=== PATIENT | female | born 1965 | race Caucasian/White ===

== ENCOUNTER → 2016-04-19 | Day surgery (SDC) | payer OTHER ==
[~2016-04-19] MED LIST: LEVOTHYROXINE75 MCG PO; ONE DAILY FOR1 EAC2 PO; POTASSIUM99 M1 PO; PRILOSEC OTC20 MG PO; VITAMIN D35000 UNI1 PO; ZESTRIL10 MG PO
== END | disposition home or self-care (01) ==
LOC: OR 07:30
PROVIDERS: Surgery
PROC: 0DBM8ZZ Excision of Descending Colon, Via Natural or Artificial Opening Endoscopic (ICD-10-PCS; principal; 2016-04-19 08:30)
DX: Z12.11 Encounter for screening for malignant neoplasm of colon (principal); K63.5 Polyp of colon; M17.10 Unilateral primary osteoarthritis, unspecified knee; E03.9 Hypothyroidism, unspecified; E66.01 Morbid (severe) obesity due to excess calories; E55.9 Vitamin D deficiency, unspecified; Z87.19 Personal history of other diseases of the digestive system; Z79.52 Long term (current) use of systemic steroids; Z79.899 Other long term (current) drug therapy; Z90.49 Acquired absence of other specified parts of digestive tract; Z87.891 Personal history of nicotine dependence; Z83.3 Family history of diabetes mellitus; Z82.49 Family history of ischemic heart disease and other diseases of the circulatory system
CPT/HCPCS: J7030; J7120